=== PATIENT | female | born 1965 | race Caucasian/White ===

== ENCOUNTER 2021-04-18 02:53 | Inpatient (IN) ==
[2021-04-18] MEDS ORDERED: DEXTROSE 50%-WATER ABBOJECT ONE (03:09)
[2021-04-18] MEDS ORDERED: NARCAN IVP STA ×2 (03:12→03:42)
[2021-04-18 03:21] LABS: ABG O2 HGB 81.9 % (95-100); BEecf -10.3 (-2.0-3.0); HCO3 17.1 (21-28); MetHb 0.6 (0-1.5); TCO2 18.3 (19-24); sO2 76.3 % (94-98); tHb 12.1 g/dl (11.7-17.4)
[2021-04-18] MEDS ORDERED: NARCAN IVP ONE (03:23)
[2021-04-18 03:24] LABS: ABG PH 7.24 (7.35-7.45)
[2021-04-18] MEDS ORDERED: DUONEB NEB ONE (03:34)
[2021-04-18] MEDS ORDERED: DUONEB NEB STA (03:41)
[2021-04-18] MEDS ORDERED: SODIUM CHLORIDE 1,000 ML IV STA (03:41)
[2021-04-18] MEDS ORDERED: SOLU-MEDROL 125 MG IVP STA (03:43)
[2021-04-18 03:45] LABS: ABG O2 HGB 86.8 % (95-100); BEecf -9.7 (-2.0-3.0); COHb 4.6 (0.5-1.5); MetHb 0.4 (0-1.5); TCO2 19.4 (19-24); sO2 83.3 % (94-98); tHb 9.2 g/dl (11.7-17.4)
[2021-04-18 03:49] LABS: BORDETELLA PARAPERTUSSIS (PCR) NOT DETECTED (NOT DETECT); BORDETELLA PERTUSSIS (PCR) NOT DETECTED (NOT DETECT); CHLAMYDIA PNEUMONIAE (PCR) NOT DETECTED (NOT DETECT); CORONAVIRUS 229E (PCR) NOT DETECTED (NOT DETECT); CORONAVIRUS HKU1 (PCR) NOT DETECTED (NOT DETECT); CORONAVIRUS NL63 (PCR) NOT DETECTED (NOT DETECT); CORONAVIRUS OC43 (PCR) NOT DETECTED (NOT DETECT); HUMAN METAPNEUMOVIRUS (PCR) NOT DETECTED (NOT DETECT); HUMAN RHINOVIRUS/ENTEROV (PCR) NOT DETECTED (NOT DETECT); INFLUENZA B (PCR) NOT DETECTED (NOT DETECT); MYCOPLASMA PNEUMONIAE (PCR) NOT DETECTED (NOT DETECT); PARAINFLUENZA VIRUS 1 (PCR) NOT DETECTED (NOT DETECT); PARAINFLUENZA VIRUS 2 (PCR) NOT DETECTED (NOT DETECT); PARAINFLUENZA VIRUS 3 (PCR) NOT DETECTED (NOT DETECT); PARAINFLUENZA VIRUS 4 (PCR) NOT DETECTED (NOT DETECT); RESPIRATORY SYNCYTIAL V (PCR) NOT DETECTED (NOT DETECT); SARS_COV_2 (PCR) NOT DETECTED (NOT DETECT)
[2021-04-18 03:50] LABS: BASOPHILS % (AUTO) 0.3 % (0.0-3.0); EOSINOPHILS # (AUTO) 0.1 K/ul (0.0-0.7); EOSINOPHILS % (AUTO) 1.5 % (0.0-7.0); HEMATOCRIT 25.6 % (37.0-47.0); HEMOGLOBIN 8.3 g/dl (12.0-16.0); IMMATURE GRANULOCYTE # (AUTO) 0.1 (0.0-1.0); LYMPHOCYTES # (AUTO) 0.7 K/uL (0.60-3.4); LYMPHOCYTES % (AUTO) 7.9 (10.0-50.0); MEAN CORPUSCULAR HEMOGLOBIN 28.2 pg (27.0-31.0); MEAN CORPUSCULAR HGB CONC 32.4 (31.8-35.4); MEAN CORPUSCULAR VOLUME 87.1 fl (81.0-99.0); MONOCYTES # (AUTO) 0.3 K/uL (0.4-2.0); MONOCYTES % (AUTO) 2.9 (0-10); NEUTROPHILS # (AUTO) 7.6 K/ul (2.0-6.9); NEUTROPHILS % (AUTO) 86.4 % (42.2-75.2); PLATELET COUNT 153 10^3/uL (140-440); RDW COEFFICIENT OF VARIATION 15.5 % (11.6-14.8); RED BLOOD COUNT 2.94 10^6/ul (4.20-5.40); WHITE BLOOD COUNT 8.83 K/ul (4.6-10.2)
[2021-04-18 03:50] LABS: ABG PH 7.22 (7.35-7.45)
[2021-04-18 03:58] LABS: BILIRUBIN,URINE Negative (NEGATIVE); CLARITY,URINE Clear (CLEAR); COLOR,URINE Yellow (YELLOW); GLUCOSE, URINE (UA) Negative (NEGATIVE); KETONES,URINE Negative (NEGATIVE); LEUKOCYTE ESTERASE ,URINE Negative (NEGATIVE); NITRITE,URINE Negative (NEGATIVE); PROTEIN,URINE 3+ (NEGATIVE); URINE, BLOOD Trace-lysed (NEGATIVE); UROBILINOGEN,URINE 0.2 (0.2)
[2021-04-18 04:02] LABS: ALANINE AMINOTRANSFERASE 38.6 U/L (0-35); ALBUMIN 3.07 g/dL (3.5-5.0); ALKALINE PHOSPHATASE 228.4 U/L (38-126); AMYLASE 48.5 U/L (30-110); ASPARTATE AMINO TRANSFERASE 41.5 U/L (14-36); BILIRUBIN,TOTAL 0.26 mg/dL (0.2-1.3); BLOOD UREA NITROGEN 35.8 mg/dL (7-17); CALCIUM 8.17 mg/dL (8.4-10.2); CARBON DIOXIDE 16.5 mmol/L (22-30.0); CHLORIDE 117.7 mmol/L (98-107); CREATININE 2.45 mg/dL (0.60-1.30); GLUCOSE 124.4 mg/dL (74-106); POTASSIUM 4.76 mmol/L (3.5-5.1); SODIUM 140.6 mmol/L (134.5-145); TOTAL PROTEIN 5.94 g/dL (6.3-8.2)
[2021-04-18 04:03] LABS: MAGNESIUM 1.91 mg/dL (1.6-2.3)
[2021-04-18 04:04] LABS: LIPASE < 10.0 U/L (23-300)
[2021-04-18 04:07] LABS: AMPHETAMINE SCREEN,URINE NEGATIVE (NEGATIVE); BARBITURATE SCREEN,URINE NEGATIVE (NEGATIVE); BENZODIAZEPINES SCREEN,URINE NEGATIVE (NEGATIVE); CANNABINOID SCREEN,URINE NEGATIVE (NEGATIVE); COCAIN SCREEN,URINE NEGATIVE (NEGATIVE); METHADONE URINE SCREEN NEGATIVE (NEGATIVE); METHAMPHETAMINES SCREEN,URINE NEGATIVE (NEGATIVE); OPIATE SCREEN,URINE NEGATIVE (NEGATIVE); OXYCODONE URINE SCREEN NEGATIVE (NEGATIVE); PHENCYCLIDINE SCREEN,URINE NEGATIVE (NEGATIVE); PROPOXYPHENE URINE SCREEN NEGATIVE (NEGATIVE); TRICYCLIC ANTIDEPRESSANTS URIN NEGATIVE (NEGATIVE)
[2021-04-18 04:08] LABS: BACTERIA,URINE 1+ (NOT PRESENT); MUCUS,URINE 1+ (NOT PRESENT)
--- NOTE | 2021-04-18 04:12 | ED.PDOC ---
General ED Provider: Dr. ELIZABETH ROQUE Chief Complaint: Hypoglycemia Stated Complaint: Patient is a 55 year old female who was brought by EMS from semi truck at the stop while travelling Through town states she woke up with hypoglycemia Glucose 51 EMS gave her 1 amp of D50 With Blood glucose went up to 151. Patient was obtunded. Time Seen by Provider: 04/18/21 03:10 Mode of Arrival: Ambulance Information Source: Patient Nursing and Triage Documentation Reviewed and Agree: Yes Does patient meet sepsis criteria?: No System Inflammatory Response Syndrome: Acutely Altered Mental Status Sepsis Protocol: For patient's 13 years and over: Temp is 96.8 and below OR 101 and greater Pulse >90 BPM Resp >20/minute Acutely Altered Mental Status Are patient's symptoms suggestive of a new infection, such as: -Pneumonia -Skin, Soft Tissue -Endocarditis -UTI -Bone, Joint Infection -Implantable Device -Acute Abdominal Infection -Wound Infection -Meningitis -Blood Stream Catheter Infection -Unknown Endocrine Complaint Exam Diabetic Complication Complaint/Exam Onset/Duration: just prior to arrival Symptoms Are: Still present Timing: Constant Initial Severity: Severe Current Severity: Moderate Character: Alert Alleviating: Reports EMS treatment Associated Signs and Symptoms: Reports Decreased LOC Related History: Reports DM 1 and Insulin requiring Last Glucometer Readin Cardiac Risk Factors: Reports DM, Hypertension, Smoking and Elevated lipids CVA Risk Factors: Reports DM, Hypertension and Smoking Acetone on Breath: No Dry Mucous Membranes: No Kussmaul Respirations: No Glascow Coma Scale (see protocol): 12 Focal Weakness: None Nystagmus Present: No Gag Reflex Present: Yes Differential Diagnoses: Acute UT, CVA, Hypoglycemia, Seizure and Sepsis Quality Indicator For Non-Traumatic Chest Pain/Syncope: EKG Performed Review of Systems Review Of Systems Constitutional: Reports Malaise All Other Systems: Other (limited by mental status ) PFSH Female Reproductive History Menstrual Hx Hysterectomy: Yes Physical Exam Physical Exam Appearance: Reports Well-nourished Ill-appearing: Severe Pain Distress: None Eyes: Reports NAZIA, EOMI and Conjunctiva clear ENT: Reports Nose normal Neck: Not Examined Respiratory: Reports Airway patent, Rhonchi and Wheezes Cardiovascular: Reports RRR, Pulses normal, No rub and No murmur GI/: Reports Soft Musculoskeletal: Reports ROM intact and No edema Skin: Reports Warm and Dry Neurological: Reports Alert to pain Psychiatric: Reports Not Examined Interpretation Radiology Interpretation Radiology Interpretation By: Radiologist Radiology Results: No acute changes (No intracranial hemorrhage or evidence of large vessel infarct.) Exam Interpreted: CT Scan (head ) Radiology Interpretation By: Radiologist Radiology Results: Positive (Bilateral pneumonia as described.) Exam Interpreted: CT Scan Box Nailer Rate: Normal Rhythm: Sinus Ectopy: None EKG Interpretation Time of EKG #1: 03:20 Rate: Walter Rhythm: Sinus Ectopy: None [place]: NL ST Segment: Normal Interpretation: Left ventricular Hypertorphy with QRS widening and repolorization abnormali Critical Care Note Critical Care Note Total Critical Care Time (mins): 60 Comments: patient was placed on 100% oxygen then titrated to 4 liters after noted elevated PO2 then down to 2 liter. Family wanted her transferred to a hospital close to her by singing her out AMA but we advised that her saturations dropped to the low 80s off oxygen and that it would not be safe to do that now. They were agreeable to admission to the hospital until her oxygen levels improved. Course Course Hematology/Chemistry: 04/18/21 03:45 04/18/21 08:15 Orders, Labs, Meds: Lab Review 04/18/21 04/18/21 04/18/21 03:10 03:15 03:35 WBC RBC Hgb Hct MCV MCH MCHC RDW Coeff of Reji Plt Count Immature Gran % (Auto) Neut % (Auto) Lymph % (Auto) Gaston % (Auto) Eos % (Auto) Baso % (Auto) Neut # (Auto) Lymph # (Auto) Gaston # (Auto) Eos # (Auto) Baso # (Auto) Immature Gran # (Auto) Puncture Site Lb Base Excess -10.3 L O2 Saturation 76.3 L ABG pH 7.24 L* ABG pCO2 40.0 ABG pO2 49.0 L* ABG HCO3 17.1 L ABG Total CO2 18.3 L Maurice Test + Hemoglobin 0.6 Oxyhemoglobin 81.9 L Carboxyhemoglobin 5.0 H Total Hemoglobin 12.1 O2 Delivery Device Oxygen Liter Flow FiO2 % 21.0 Sodium Potassium Chloride Carbon Dioxide Anion Gap BUN Creatinine Estimated GFR (MDRD) BUN/Creatinine Ratio Glucose Lactic Acid Calcium Magnesium Total Bilirubin AST ALT Alkaline Phosphatase Troponin I NT-Pro-B Natriuret Pep Total Protein Albumin Globulin Albumin/Globulin Ratio Amylase Lipase Procalcitonin Urine Color Yellow Urine Clarity Clear Urine pH 5.0 Ur Specific Whately 1.025 Urine Protein 3+ H Urine Glucose (UA) Negative Urine Ketones Negative Urine Blood Trace-lysed Urine Nitrite Negative Urine Bilirubin Negative Urine Urobilinogen 0.2 Ur Leukocyte Esterase Negative Urine Microscopic RBC 5-10 Urine Microscopic WBC 2-5 Ur Squamous Epith Cells 2-5 Urine Bacteria 1+ Hyaline Casts 2-5 Urine Mucus 1+ Urine Opiates Screen Ur Oxycodone Screen Urine Methadone Screen Ur Propoxyphene Screen Ur Barbiturates Screen U Tricyclic Antidepress Ur Phencyclidine Scrn Ur Amphetamine Screen U Methamphetamines Scrn U Benzodiazepines Scrn Urine Cocaine Screen U Cannabinoids Screen Adenovirus (PCR) Not detected B. pertussis DNA (PCR) Not detected B.parapertussis DNA PCR Not detected C. pneumoniae DNA (PCR) Not detected Coronavirus OC43 (PCR) Not detected Coronavirus HKU1 (PCR) Not detected Coronavirus 229E (PCR) Not detected Coronavirus NL63 (PCR) Not detected Human Metapneumovir PCR Not detected Influenza Type A (PCR) Not detected Influenza B (RT-PCR) Not detected M. pneumoniae (PCR) Not detected Parainfluenza 1 (PCR) Not detected Parainfluenza 2 (PCR) Not detected Parainfluenza 3 (PCR) Not detected Parainfluenza 4 (PCR) Not detected RSV (PCR) Not detected Entero/Rhino (PCR) Not detected SARS-CoV-2 (PCR) Not detected 04/18/21 04/18/21 04/18/21 03:35 03:40 03:45 WBC 8.83 RBC 2.94 L Hgb 8.3 L Hct 25.6 L MCV 87.1 MCH 28.2 MCHC 32.4 RDW Coeff of Reji 15.5 H Plt Count 153 Immature Gran % (Auto) 1.0 Neut % (Auto) 86.4 H Lymph % (Auto) 7.9 L Gaston % (Auto) 2.9 Eos % (Auto) 1.5 Baso % (Auto) 0.3 Neut # (Auto) 7.6 H Lymph # (Auto) 0.7 Gaston # (Auto) 0.3 L Eos # (Auto) 0.1 Baso # (Auto) 0.0 Immature Gran # (Auto) 0.1 Puncture Site Lr Base Excess -9.7 L O2 Saturation 83.3 L ABG pH 7.22 L* ABG pCO2 44.0 ABG pO2 58.0 L* ABG HCO3 18.0 L ABG Total CO2 19.4 Maurice Test + Hemoglobin 0.4 Oxyhemoglobin 86.8 L Carboxyhemoglobin 4.6 H Total Hemoglobin 9.2 L O2 Delivery Device Non rebreather Oxygen Liter Flow 15.00 FiO2 % 100.0 Sodium Potassium Chloride Carbon Dioxide Anion Gap BUN Creatinine Estimated GFR (MDRD) BUN/Creatinine Ratio Glucose Lactic Acid Calcium Magnesium Total Bilirubin AST ALT Alkaline Phosphatase Troponin I NT-Pro-B Natriuret Pep Total Protein Albumin Globulin Albumin/Globulin Ratio Amylase Lipase Procalcitonin Urine Color Urine Clarity Urine pH Ur Specific Whately Urine Protein Urine Glucose (UA) Urine Ketones Urine Blood Urine Nitrite Urine Bilirubin Urine Urobilinogen Ur Leukocyte Esterase Urine Microscopic RBC Urine Microscopic WBC Ur Squamous Epith Cells Urine Bacteria Hyaline Casts Urine Mucus Urine Opiates Screen Negative Ur Oxycodone Screen Negative Urine Methadone Screen Negative Ur Propoxyphene Screen Negative Ur Barbiturates Screen Negative U Tricyclic Antidepress Negative Ur Phencyclidine Scrn Negative Ur Amphetamine Screen Negative U Methamphetamines Scrn Negative U Benzodiazepines Scrn Negative Urine Cocaine Screen Negative U Cannabinoids Screen Negative Adenovirus (PCR) B. pertussis DNA (PCR) B.parapertussis DNA PCR C. pneumoniae DNA (PCR) Coronavirus OC43 (PCR) Coronavirus HKU1 (PCR) Coronavirus 229E (PCR) Coronavirus NL63 (PCR) Human Metapneumovir PCR Influenza Type A (PCR) Influenza B (RT-PCR) M. pneumoniae (PCR) Parainfluenza 1 (PCR) Parainfluenza 2 (PCR) Parainfluenza 3 (PCR) Parainfluenza 4 (PCR) RSV (PCR) Entero/Rhino (PCR) SARS-CoV-2 (PCR) 04/18/21 04/18/21 04/18/21 03:45 03:45 03:45 WBC RBC Hgb Hct MCV MCH MCHC RDW Coeff of Reji Plt Count Immature Gran % (Auto) Neut % (Auto) Lymph % (Auto) Gaston % (Auto) Eos % (Auto) Baso % (Auto) Neut # (Auto) Lymph # (Auto) Gaston # (Auto) Eos # (Auto) Baso # (Auto) Immature Gran # (Auto) Puncture Site Base Excess O2 Saturation ABG pH ABG pCO2 ABG pO2 ABG HCO3 ABG Total CO2 Maurice Test Hemoglobin Oxyhemoglobin Carboxyhemoglobin Total Hemoglobin O2 Delivery Device Oxygen Liter Flow FiO2 % Sodium 140.6 Potassium 4.76 Chloride 117.7 H Carbon Dioxide 16.5 L Anion Gap 11.16 BUN 35.8 H Creatinine 2.45 H Estimated GFR (MDRD) 20.00 BUN/Creatinine Ratio 14.61 Glucose 124.4 H Lactic Acid < 0.50 L Calcium 8.17 L Magnesium 1.91 Total Bilirubin 0.26 AST 41.5 H ALT 38.6 H Alkaline Phosphatase 228.4 H Troponin I < 0.012 NT-Pro-B Natriuret Pep Total Protein 5.94 L Albumin 3.07 L Globulin 2.87 Albumin/Globulin Ratio 1.06 Amylase 48.5 Lipase < 10.0 L Procalcitonin Urine Color Urine Clarity Urine pH Ur Specific Whately Urine Protein Urine Glucose (UA) Urine Ketones Urine Blood Urine Nitrite Urine Bilirubin Urine Urobilinogen Ur Leukocyte Esterase Urine Microscopic RBC Urine Microscopic WBC Ur Squamous Epith Cells Urine Bacteria Hyaline Casts Urine Mucus Urine Opiates Screen Ur Oxycodone Screen Urine Methadone Screen Ur Propoxyphene Screen Ur Barbiturates Screen U Tricyclic Antidepress Ur Phencyclidine Scrn Ur Amphetamine Screen U Methamphetamines Scrn U Benzodiazepines Scrn Urine Cocaine Screen U Cannabinoids Screen Adenovirus (PCR) B. pertussis DNA (PCR) B.parapertussis DNA PCR C. pneumoniae DNA (PCR) Coronavirus OC43 (PCR) Coronavirus HKU1 (PCR) Coronavirus 229E (PCR) Coronavirus NL63 (PCR) Human Metapneumovir PCR Influenza Type A (PCR) Influenza B (RT-PCR) M. pneumoniae (PCR) Parainfluenza 1 (PCR) Parainfluenza 2 (PCR) Parainfluenza 3 (PCR) Parainfluenza 4 (PCR) RSV (PCR) Entero/Rhino (PCR) SARS-CoV-2 (PCR) 04/18/21 04/18/21 04/18/21 03:45 03:45 04:40 WBC RBC Hgb Hct MCV MCH MCHC RDW Coeff of Reji Plt Count Immature Gran % (Auto) Neut % (Auto) Lymph % (Auto) Gaston % (Auto) Eos % (Auto) Baso % (Auto) Neut # (Auto) Lymph # (Auto) Gaston # (Auto) Eos # (Auto) Baso # (Auto) Immature Gran # (Auto) Puncture Site Lb Base Excess -10.7 L O2 Saturation 99.7 H ABG pH 7.21 L* ABG pCO2 43.0 ABG pO2 238.0 H ABG HCO3 17.2 L ABG Total CO2 18.5 L Maurice Test + Hemoglobin 0.8 Oxyhemoglobin 94.6 L Carboxyhemoglobin 3.3 H Total Hemoglobin 9.2 L O2 Delivery Device Non rebreather Oxygen Liter Flow 15.00 FiO2 % 100.0 Sodium Potassium Chloride Carbon Dioxide Anion Gap BUN Creatinine Estimated GFR (MDRD) BUN/Creatinine Ratio Glucose Lactic Acid Calcium Magnesium Total Bilirubin AST ALT Alkaline Phosphatase Troponin I NT-Pro-B Natriuret Pep 4950.000 H Total Protein Albumin Globulin Albumin/Globulin Ratio Amylase Lipase Procalcitonin < 0.05 Urine Color Urine Clarity Urine pH Ur Specific Whately Urine Protein Urine Glucose (UA) Urine Ketones Urine Blood Urine Nitrite Urine Bilirubin Urine Urobilinogen Ur Leukocyte Esterase Urine Microscopic RBC Urine Microscopic WBC Ur Squamous Epith Cells Urine Bacteria Hyaline Casts Urine Mucus Urine Opiates Screen Ur Oxycodone Screen Urine Methadone Screen Ur Propoxyphene Screen Ur Barbiturates Screen U Tricyclic Antidepress Ur Phencyclidine Scrn Ur Amphetamine Screen U Methamphetamines Scrn U Benzodiazepines Scrn Urine Cocaine Screen U Cannabinoids Screen Adenovirus (PCR) B. pertussis DNA (PCR) B.parapertussis DNA PCR C. pneumoniae DNA (PCR) Coronavirus OC43 (PCR) Coronavirus HKU1 (PCR) Coronavirus 229E (PCR) Coronavirus NL63 (PCR) Human Metapneumovir PCR Influenza Type A (PCR) Influenza B (RT-PCR) M. pneumoniae (PCR) Parainfluenza 1 (PCR) Parainfluenza 2 (PCR) Parainfluenza 3 (PCR) Parainfluenza 4 (PCR) RSV (PCR) Entero/Rhino (PCR) SARS-CoV-2 (PCR) 04/18/21 04/18/21 07:03 08:15 WBC RBC Hgb Hct MCV MCH MCHC RDW Coeff of Reji Plt Count Immature Gran % (Auto) Neut % (Auto) Lymph % (Auto) Gaston % (Auto) Eos % (Auto) Baso % (Auto) Neut # (Auto) Lymph # (Auto) Gaston # (Auto) Eos # (Auto) Baso # (Auto) Immature Gran # (Auto) Puncture Site [place] Base Excess -11.8 L O2 Saturation 91.1 L ABG pH 7.19 L* ABG pCO2 43.0 ABG pO2 76.0 L ABG HCO3 16.4 L ABG Total CO2 17.7 L Maurice Test Pos Hemoglobin 1.4 Oxyhemoglobin 91.7 L Carboxyhemoglobin 2.5 H Total Hemoglobin 9.4 L O2 Delivery Device Cannula Oxygen Liter Flow 3.00 FiO2 % Sodium 141.2 Potassium 5.18 H Chloride 119.5 H Carbon Dioxide 15.9 L Anion Gap 10.98 BUN 35.6 H Creatinine 2.40 H Estimated GFR (MDRD) 21.00 BUN/Creatinine Ratio 14.83 Glucose 82.9 Lactic Acid Calcium 8.36 L Magnesium Total Bilirubin AST ALT Alkaline Phosphatase Troponin I NT-Pro-B Natriuret Pep Total Protein Albumin Globulin Albumin/Globulin Ratio Amylase Lipase Procalcitonin Urine Color Urine Clarity Urine pH Ur Specific Whately Urine Protein Urine Glucose (UA) Urine Ketones Urine Blood Urine Nitrite Urine Bilirubin Urine Urobilinogen Ur Leukocyte Esterase Urine Microscopic RBC Urine Microscopic WBC Ur Squamous Epith Cells Urine Bacteria Hyaline Casts Urine Mucus Urine Opiates Screen Ur Oxycodone Screen Urine Methadone Screen Ur Propoxyphene Screen Ur Barbiturates Screen U Tricyclic Antidepress Ur Phencyclidine Scrn Ur Amphetamine Screen U Methamphetamines Scrn U Benzodiazepines Scrn Urine Cocaine Screen U Cannabinoids Screen Adenovirus (PCR) B. pertussis DNA (PCR) B.parapertussis DNA PCR C. pneumoniae DNA (PCR) Coronavirus OC43 (PCR) Coronavirus HKU1 (PCR) Coronavirus 229E (PCR) Coronavirus NL63 (PCR) Human Metapneumovir PCR Influenza Type A (PCR) Influenza B (RT-PCR) M. pneumoniae (PCR) Parainfluenza 1 (PCR) Parainfluenza 2 (PCR) Parainfluenza 3 (PCR) Parainfluenza 4 (PCR) RSV (PCR) Entero/Rhino (PCR) SARS-CoV-2 (PCR) Orders Category Date Time Status ABG DRAW REQUEST Stat CARDIO 04/18/21 03:09 Completed ABG DRAW REQUEST Stat CARDIO 04/18/21 03:40 Completed ABG DRAW REQUEST Stat CARDIO 04/18/21 04:30 Completed EKG-(ED ONLY) Stat CARDIO 04/18/21 03:08 Completed NEBULIZER TREATMENT Stat CARDIO 04/18/21 03:41 Completed APPLY [ED APPLY O2] .ONCE EMERGENCY 04/18/21 03:14 Active Sales [ED CATHETER INSERTION AND CARE] .ONCE EMERGENCY 04/18/21 03:45 Active ABG COOX Stat LAB 04/18/21 03:15 Completed ABG COOX Stat LAB 04/18/21 03:40 Completed ABG COOX Stat LAB 04/18/21 04:40 Completed ABG COOX Stat LAB 04/18/21 07:03 Completed AMYLASE Stat LAB 04/18/21 03:45 Completed BMP [BASIC METABOLIC PANEL] Stat LAB 04/18/21 08:15 Completed BNP [NT-PROBNP] Stat LAB 04/18/21 03:45 Completed CBC W/ AUTO DIFF Stat LAB 04/18/21 03:45 Completed COMPREHENSIVE METABOLIC PANEL Stat LAB 04/18/21 03:45 Completed LACTIC ACID Stat LAB 04/18/21 03:45 Completed LIPASE Stat LAB 04/18/21 03:45 Completed MAGNESIUM Stat LAB 04/18/21 03:45 Completed PROCALCITONIN Stat LAB 04/18/21 03:45 Completed RESPIRATORY PANEL 2.1 (PCR) Stat LAB 04/18/21 03:10 Completed TROPONIN I Stat LAB 04/18/21 03:45 Completed URINALYSIS C & S IF INDICATED Stat LAB 04/18/21 03:35 Completed URINE CULTURE Stat LAB 04/18/21 03:35 Received URINE DRUG SCREEN (RAPID FOR ED) [DRUG SCREEN, URINE, LAB 04/18/21 03:35 Completed RAPID] Stat Azithromycin Inj [Zithromax] 500 mg MEDS 04/18/21 04:54 Discontinued 0.9 % Sodium Chloride [Sodium Chloride] 250 ml IV ONCE Ceftriaxone/D5w 1 gm Premix [Rocephin 1 gm/50 ml D5w] MEDS 04/18/21 04:18 Discontinued 1 gm in 50 ml IV ONCE Dextrose 50 % in Water [Dextrose 50%-Water Abboject] MEDS 04/18/21 03:09 Discontinued 50 ml .ROUTE .STK-MED ONE Ipratropium/Albuterol Neb [Duoneb] MEDS 04/18/21 03:34 Discontinued 3 ml NEB .STK-MED ONE Ipratropium/Albuterol Neb [Duoneb] MEDS 04/18/21 03:41 Discontinued 3 ml NEB ONCE STA Methylprednisolone Sod Succ/Pf [Solu-Medrol 125 mg] MEDS 04/18/21 03:43 Discontinued 125 mg IVP ONCE STA Naloxone HCl [Narcan] MEDS 04/18/21 03:23 Discontinued 2 mg IVP ONCE ONE Naloxone HCl [Narcan] MEDS 04/18/21 03:42 Discontinued 2 mg IVP ONCE STA Sodium Chloride 0.9% [Sodium Chloride] 1,000 ml MEDS 04/18/21 03:41 D iscontinued IV BOLUS CT CHEST W/O CONTRAST Stat RADS 04/18/21 03:[address] HEAD W/O CONTRAST Stat RADS 04/18/21 03:43 Completed Medications Discontinued Medications Generic Name Dose Route Start Last Admin Trade Name Freq PRN Reason Stop Dose Admin Albuterol/Ipratropium 3 ml 04/18/21 03:41 04/18/21 04:51 Ipratropium/Albuterol Vial.Neb NEB 04/18/21 03:42 Not Given ONCE STA Sodium Chloride 1,000 mls @ 1,000 mls/hr 04/18/21 03:41 04/18/21 03:46 Sodium Chloride IV 04/18/21 04:40 1,000 mls/hr BOLUS STA Administration CEFTRIAXONE/D5W 1 GM PREMIX 1 gm in 50 mls @ 75 mls/hr 04/18/21 04:18 03/24 11/10 04:24 Rocephin 1 Gm/50 Ml D5w IV 04/18/21 04:57 75 mls/hr ONCE STA Administration Azithromycin 500 mg/ Sodium 250 mls @ 125 mls/hr 04/18/21 04:54 04/18/21 05:02 Chloride IV 04/18/21 06:53 125 mls/hr ONCE ONE Administration Methylprednisolone Sodium Succinate 125 mg 04/18/21 03:43 04/18/21 03:49 Methylprednisolone Sod Succ/Pf 125 Mg/2 Ml Vial IVP 04/18/21 03:44 125 mg ONCE STA Administration Naloxone HCl 2 mg 04/18/21 03:23 04/18/21 03:26 Naloxone Hcl 2 Mg/2 Ml Disp.Syrin IVP 04/18/21 03:24 2 mg ONCE ONE Administration Naloxone HCl 2 mg 04/18/21 03:42 04/18/21 03:46 Naloxone Hcl 2 Mg/2 Ml Disp.Syrin IVP 04/18/21 03:43 2 mg ONCE STA Administration Vital Signs: Temp Pulse Resp BP Pulse Ox 04/18/21 02:54 96.3 F L 59 L 18 130/57 L 87 L Discharge Plan Discharge Patient Disposition: ADMITTED INPATIENT Discharge Problem: Bilateral pneumonia, Hypoglycemia, Chronic kidney failure ED Provider: ELIZABETH ROQUE Condition: Stable Physician Progress Note: []
[2021-04-18 04:14] LABS: TROPONIN I < 0.012 ng/ml (0.0000-0.120)
[2021-04-18] MEDS ORDERED: ROCEPHIN 1 GM/50 ML D5W 1 GM/50 ML BAG IV STA (04:18)
[2021-04-18 04:20] LABS: ADENOVIRUS (PCR) NOT DETECTED (NOT DETECT)
[2021-04-18 04:44] LABS: ABG O2 HGB 94.6 % (95-100); BEecf -10.7 (-2.0-3.0); COHb 3.3 (0.5-1.5); HCO3 17.2 (21-28); MetHb 0.8 (0-1.5); TCO2 18.5 (19-24); sO2 99.7 % (94-98); tHb 9.2 g/dl (11.7-17.4)
--- NOTE | 2021-04-18 04:45 | CT ---
EXAM: CT head without contrast. HISTORY: Altered level of consciousness. PROCEDURE: Contiguous axial CT images of the head without contrast with coronal and sagittal reforma ts. FINDINGS: There is diffuse cerebral atrophy. The ventricles and basal cisterns are normal in size an d configuration. No evidence of mass or midline shift. No intracranial hemorrhage or evidence of la rge vessel infarct. There are chronic small vessel ischemic changes in the white matter. 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 There is minimal mucosal thickening in the paranasal sin uses. The mastoid air cells are normal in appearance. Impression: No intracranial hemorrhage or evidence of large vessel infarct. Chronic small vessel ischemic changes. Diffuse cerebral atrophy. Paranasal sinusitis. All CT scans are performed using dose optimization techniques as appropriate to the performed exam an d include at least one of the following: Automated exposure control, adjustment of the mA and/or kV according t o size, and the use of iterative reconstruction technique.
[2021-04-18 04:47] LABS: ABG PH 7.21 (7.35-7.45)
--- NOTE | 2021-04-18 04:48 | CT ---
EXAM: CT chest without contrast. HISTORY: Hypoxia. PROCEDURE: Contiguous axial CT images of the chest without contrast with coronal and sagittal reform ats. FINDINGS: The heart is enlarged. The thoracic aorta is within normal limits in size. There are enla rged mediastinal lymph nodes measuring up to 1.2 cm in short axis. There are small layering bilatera l pleural effusions. There are bilateral infiltrates and consolidation, consistent with pneumonia. There is a fluid density cyst in the liver. There is a fluid density cyst in the mid body of the gibson creas measuring 3.9 x 4 cm. There are degenerative changes in the spine. There are multiple sternot peewee wires. Impression: Bilateral pneumonia as described. Small bilateral pleural effusions. Mediastinal lymphadenopathy as described. Recommend follow-up CT in 3 months to confirm stability. Cardiomegaly. 3.9 x 4 cm pancreatic cyst as described, recommend follow-up CT in 3 months to confirm stability. All CT scans are performed using dose optimization techniques as appropriate to the performed exam an d include at least one of the following: Automated exposure control, adjustment of the mA and/or kV according t o size, and the use of iterative reconstruction technique.
[2021-04-18] MEDS ORDERED: ZITHROMAX 500 MG in SODIUM CHLORIDE 250 ML IV ONE (04:54)
[2021-04-18 07:16] LABS: ABG O2 HGB 91.7 % (95-100); BEecf -11.8 (-2.0-3.0); COHb 2.5 (0.5-1.5); HCO3 16.4 (21-28); MetHb 1.4 (0-1.5); TCO2 17.7 (19-24); sO2 91.1 % (94-98); tHb 9.4 g/dl (11.7-17.4)
[2021-04-18 07:19] LABS: ABG PH 7.19 (7.35-7.45)
[2021-04-18 08:42] LABS: BLOOD UREA NITROGEN 35.6 mg/dL (7-17); CALCIUM 8.36 mg/dL (8.4-10.2); CARBON DIOXIDE 15.9 mmol/L (22-30.0); CHLORIDE 119.5 mmol/L (98-107); CREATININE 2.4 mg/dL (0.60-1.30); GLUCOSE 82.9 mg/dL (74-106); POTASSIUM 5.18 mmol/L (3.5-5.1); SODIUM 141.2 mmol/L (134.5-145)
[2021-04-18 11:04] VITALS: BMI 29.0
[2021-04-18] MEDS ORDERED: IMODIUM PO PRN (11:32)
[2021-04-18] MEDS ORDERED: PEPTO-BISMOL CHEW PO PRN (11:32)
[2021-04-18] MEDS ORDERED: INSU SUBCUT SCH (11:45)
[2021-04-18] MEDS ORDERED: INSULIN LISPRO 100 UNIT/ML SUBCUT SCH (11:45)
[2021-04-18] MEDS ORDERED: [UNRECOGNIZED DRUG - OTHER] SUBCUT SCH (11:45)
[2021-04-18] MEDS ORDERED: NON-FORMULARY MEDICATION (Aspirin 81 mg Tablet) PO SCH (11:45)
[2021-04-18] MEDS: NORVASC PO SCH (12:07)
[2021-04-18] MEDS: APRESOLINE PO SCH ×4 (12:07→21:53)
[2021-04-18] MEDS: SODIUM CHLORIDE 1,000 ML IV SCH ×2 (12:08→21:41)
[2021-04-18] MEDS: PLAVIX PO SCH (12:08)
[2021-04-18] MEDS: PROZAC PO SCH (12:08)
[2021-04-18] MEDS: ZETIA PO SCH (12:08)
[2021-04-18] MEDS: LOVENOX SUBCUT SCH (12:09)
[2021-04-18] MEDS: NEURONTIN PO SCH ×2 (15:51→21:53)
[2021-04-18] MEDS: COREG PO SCH (17:24)
[2021-04-18] MEDS: LANTUS SUBCUT SCH (21:54)
[2021-04-19 05:24] LABS: BASOPHILS % (AUTO) 0.1 % (0.0-3.0); HEMATOCRIT 27.6 % (37.0-47.0); HEMOGLOBIN 8.7 g/dl (12.0-16.0); IMMATURE GRANULOCYTE # (AUTO) 0.1 (0.0-1.0); IMMATURE GRANULOCYTE % (AUTO) 0.6 % (0.0-5.0); LYMPHOCYTES # (AUTO) 0.8 K/uL (0.60-3.4); LYMPHOCYTES % (AUTO) 8.1 (10.0-50.0); MEAN CORPUSCULAR HEMOGLOBIN 27.7 pg (27.0-31.0); MEAN CORPUSCULAR HGB CONC 31.5 (31.8-35.4); MEAN CORPUSCULAR VOLUME 87.9 fl (81.0-99.0); MONOCYTES # (AUTO) 0.5 K/uL (0.4-2.0); MONOCYTES % (AUTO) 5.6 (0-10); NEUTROPHILS # (AUTO) 8.2 K/ul (2.0-6.9); NEUTROPHILS % (AUTO) 85.6 % (42.2-75.2); PLATELET COUNT 154 10^3/uL (140-440); RDW COEFFICIENT OF VARIATION 15.7 % (11.6-14.8); RED BLOOD COUNT 3.14 10^6/ul (4.20-5.40); WHITE BLOOD COUNT 9.59 K/ul (4.6-10.2)
[2021-04-19 05:44] LABS: ALBUMIN 3.04 g/dL (3.5-5.0); ALKALINE PHOSPHATASE 210.7 U/L (38-126); ASPARTATE AMINO TRANSFERASE 23.7 U/L (14-36); BILIRUBIN,TOTAL 0.24 mg/dL (0.2-1.3); BLOOD UREA NITROGEN 38.8 mg/dL (7-17); CALCIUM 8.85 mg/dL (8.4-10.2); CARBON DIOXIDE 16.4 mmol/L (22-30.0); CHLORIDE 117.7 mmol/L (98-107); CREATININE 2.49 mg/dL (0.60-1.30); GLUCOSE 226.1 mg/dL (74-106); SODIUM 139.6 mmol/L (134.5-145); TOTAL PROTEIN 5.78 g/dL (6.3-8.2)
[2021-04-19 05:52] LABS: POTASSIUM 5.99 mmol/L (3.5-5.1)
[2021-04-19] MEDS: HUMULIN R SUBCUT PRN ×2 (06:09→12:23)
[2021-04-19 07:03] LABS: ABG O2 HGB 95.2 % (95-100); BEecf -11.5 (-2.0-3.0); COHb 1.1 (0.5-1.5); HCO3 15.9 (21-28); MetHb 0.6 (0-1.5); sO2 93.8 % (94-98); tHb 8.9 g/dl (11.7-17.4)
[2021-04-19 07:06] LABS: ABG PH 7.24 (7.35-7.45)
[2021-04-19] MEDS: SODIUM CHLORIDE 1,000 ML IV SCH ×2 (09:12→20:52)
[2021-04-19] MEDS: ASPIRIN EC PO SCH (09:13)
[2021-04-19] MEDS: ZITHROMAX 500 MG in SODIUM CHLORIDE 250 ML IV SCH (09:13)
[2021-04-19] MEDS: PROZAC PO SCH (09:13)
[2021-04-19] MEDS: COREG PO SCH ×2 (09:13→17:35)
[2021-04-19] MEDS: ZETIA PO SCH (09:13)
[2021-04-19] MEDS: PLAVIX PO SCH (09:14)
[2021-04-19] MEDS: APRESOLINE PO SCH ×4 (09:14→20:35)
[2021-04-19] MEDS: NORVASC PO SCH (09:14)
[2021-04-19] MEDS: NEURONTIN PO SCH ×3 (09:14→20:35)
[2021-04-19] MEDS: LANTUS SUBCUT SCH ×2 (09:14→20:36)
[2021-04-19] MEDS: LOVENOX SUBCUT SCH (09:15)
[2021-04-19] MEDS: ROCEPHIN 1 GM/50 ML D5W 1 GM/50 ML BAG IV SCH (11:26)
--- NOTE | 2021-04-19 16:45 | DI ---
EXAM: CHEST FRONTAL VIEW HISTORY: Pneumonia COMPARISON: None FINDINGS: Cardiomegaly and sternotomy wires are noted. Limited image quality secondary to body habi tus and portable technique. It would be difficult to exclude mild left base infiltrate/consolidation . Minimal central vascular congestion. Probable trace left pleural effusion. No pneumothorax. IMPRESSION: Limited image quality secondary to body habitus and portable technique. It would be dif ficult to exclude mild left base infiltrate/consolidation. Minimal central vascular congestion. Pro bable trace left pleural effusion. If symptoms persist, consider follow up with full inspiration, st anding two-view chest radiography using PA and lateral technique.
--- NOTE | 2021-04-19 20:08 | PCM.PROG ---
Date Seen by Provider: 04/19/21 Time Seen by Provider: 20:05 Subjective: Admits to breathing easier-no other complaints Objective: Vitals: T=98.5 F, P=59, R=16, VF=864/62, SPO2=98 HEENT: Clear Neck: Supple Lungs: CTA-Diminished BS\ CVS: HRRR Abdomen: Soft nontender Extremities: No Edema Neurological: Normal without focal deficit Skin: [] Lab/Tests/Diagnostic Imaging: See Chart (1) Bilateral pneumonia: Status: Acute Code(s): J18.9 - Pneumonia, unspecified organism SNOMED Code(s): 131435226 (2) Hypoglycemia: Status: Acute Code(s): E16.2 - Hypoglycemia, unspecified SNOMED Code(s): 840394289 (3) Chronic kidney failure: Status: Acute Code(s): N18.9 - Chronic kidney disease, unspecified SNOMED Code(s): 28429535 Plan: Continue present therapy Repeat Lab in am
[2021-04-20 05:08] LABS: BASOPHILS % (AUTO) 0.4 % (0.0-3.0); EOSINOPHILS # (AUTO) 0.1 K/ul (0.0-0.7); EOSINOPHILS % (AUTO) 0.9 % (0.0-7.0); HEMATOCRIT 26.5 % (37.0-47.0); HEMOGLOBIN 8.4 g/dl (12.0-16.0); IMMATURE GRANULOCYTE # (AUTO) 0.1 (0.0-1.0); IMMATURE GRANULOCYTE % (AUTO) 1.2 % (0.0-5.0); LYMPHOCYTES # (AUTO) 1.6 K/uL (0.60-3.4); LYMPHOCYTES % (AUTO) 17.3 (10.0-50.0); MEAN CORPUSCULAR HEMOGLOBIN 28.2 pg (27.0-31.0); MEAN CORPUSCULAR HGB CONC 31.7 (31.8-35.4); MEAN CORPUSCULAR VOLUME 88.9 fl (81.0-99.0); MONOCYTES # (AUTO) 0.5 K/uL (0.4-2.0); MONOCYTES % (AUTO) 5.3 (0-10); NEUTROPHILS % (AUTO) 74.9 % (42.2-75.2); PLATELET COUNT 142 10^3/uL (140-440); RDW COEFFICIENT OF VARIATION 15.9 % (11.6-14.8); RED BLOOD COUNT 2.98 10^6/ul (4.20-5.40)
[2021-04-20 05:20] LABS: ALANINE AMINOTRANSFERASE 31.7 U/L (0-35); ALBUMIN 2.91 g/dL (3.5-5.0); ALKALINE PHOSPHATASE 188.7 U/L (38-126); ASPARTATE AMINO TRANSFERASE 32.4 U/L (14-36); BILIRUBIN,TOTAL 0.16 mg/dL (0.2-1.3); BLOOD UREA NITROGEN 42.5 mg/dL (7-17); CALCIUM 7.98 mg/dL (8.4-10.2); CHLORIDE 121.9 mmol/L (98-107); CREATININE 2.51 mg/dL (0.60-1.30); GLUCOSE 83.5 mg/dL (74-106); POTASSIUM 5.14 mmol/L (3.5-5.1); SODIUM 140.8 mmol/L (134.5-145); TOTAL PROTEIN 5.62 g/dL (6.3-8.2)
[2021-04-20] MEDS: SODIUM CHLORIDE 1,000 ML IV SCH (07:47)
[2021-04-20] MEDS: PLAVIX PO SCH (08:29)
[2021-04-20] MEDS: NEURONTIN PO SCH ×3 (08:30→21:49)
[2021-04-20] MEDS: APRESOLINE PO SCH ×4 (08:30→21:50)
[2021-04-20] MEDS: ZETIA PO SCH (08:30)
[2021-04-20] MEDS: ASPIRIN EC PO SCH (08:30)
[2021-04-20] MEDS: NORVASC PO SCH (08:30)
[2021-04-20] MEDS: COREG PO SCH ×2 (08:30→16:32)
[2021-04-20] MEDS: ROCEPHIN 1 GM/50 ML D5W 1 GM/50 ML BAG IV SCH (08:31)
[2021-04-20] MEDS: PROZAC PO SCH (08:31)
[2021-04-20] MEDS ORDERED: HUMULIN R SUBCUT STA (09:10)
[2021-04-20] MEDS ORDERED: ALBUTEROL 0.083% NEB NEB PRN (09:11)
[2021-04-20] MEDS ORDERED: HUMULIN R SUBCUT PRN (09:15)
[2021-04-20] MEDS: LANTUS SUBCUT SCH ×2 (10:19→21:55)
[2021-04-20] MEDS: ZITHROMAX 500 MG in SODIUM CHLORIDE 250 ML IV SCH (10:21)
[2021-04-20] MEDS: SOLU-MEDROL 40 MG IVP SCH ×3 (10:21→21:49)
[2021-04-20] MEDS: DUONEB NEB SCH ×4 (10:37→21:30)
[2021-04-20] MEDS ORDERED: SODIUM CHLORIDE 1,000 ML IV SCH (11:56)
--- NOTE | 2021-04-20 16:10 | DI ---
EXAM: CHEST FRONTAL AND LATERAL VIEWS HISTORY: Shortness of breath COMPARISON: 04/14/2021 FINDINGS: Cardiomegaly, atherosclerotic disease and sternotomy wires are again noted. There is a sm all left pleural effusion similar to that previously seen. Adjacent left base density could represen t pneumonia or atelectasis. There is minimal central vascular congestion. No pneumothorax. IMPRESSION: 1. Stable findings since prior study. See above.
[2021-04-20] MEDS: HUMULIN R SUBCUT PRN ×2 (16:53→21:56)
--- NOTE | 2021-04-20 23:48 | PCM.PROG ---
Date Seen by Provider: 04/20/21 Time Seen by Provider: 09:00 Subjective: Admitted 04/18 with mild pneumonia, COPD exac, CKD exacerbation. See ETR for HPI and other info. She feels much better and is insistent on being discharged tomorrow. Her family wants to take her home to [facility]. Objective: Vitals: T=97.2 F, P=57, R=20, FX=613/74, SPO2=97 HEENT: [wnl] Neck: [wnl] Lungs: rhonchi, mild wheezing[] CVS: [rrr no m] Abdomen: [soft] Extremities: [intact] Neurological: [intact] Skin: []wnl Lab/Tests/Diagnostic Imaging: []see chart, she has diabetic nephropathy, so CKD (K runs somewhat high) and chronic anemia. CXR - mild pneumonia. (1) Bilateral pneumonia: Status: Acute Code(s): J18.9 - Pneumonia, unspecified organism SNOMED Code(s): 774058887 Assessment: On abx, neb tx prn, mild steroids, still on some oxygen per NC. Clinically improved. Has underlying COPD> (2) Diabetic nephropathy associated with type 2 diabetes mellitus: Status: Acute Code(s): E11.21 - Type 2 diabetes mellitus with diabetic nephropathy SNOMED Code(s): 579266625 Assessment: CKD and anemia likely at baseline, no records here, K runs a bit high, apparently chronic. BS controlled. Plan: 1. Pneumonia/COPD - continue abx, steroids, neb. Wean off O2, patient wants discharged tomorrow. 2. Diabetic nephropathy - likely at her baseline.
[2021-04-21] MEDS: DUONEB NEB SCH ×2 (01:07→04:15)
[2021-04-21 04:46] VITALS: BP 173/79; TEMP 98.1
[2021-04-21] MEDS: SOLU-MEDROL 40 MG IVP SCH (06:07)
[2021-04-21] MEDS: HUMULIN R SUBCUT PRN (06:07)
[2021-04-21 06:15] LABS: BASOPHILS % (AUTO) 0.2 % (0.0-3.0); HEMATOCRIT 27.4 % (37.0-47.0); HEMOGLOBIN 8.7 g/dl (12.0-16.0); IMMATURE GRANULOCYTE # (AUTO) 0.3 (0.0-1.0); IMMATURE GRANULOCYTE % (AUTO) 4.3 % (0.0-5.0); LYMPHOCYTES # (AUTO) 0.4 K/uL (0.60-3.4); LYMPHOCYTES % (AUTO) 7.3 (10.0-50.0); MEAN CORPUSCULAR HEMOGLOBIN 28.5 pg (27.0-31.0); MEAN CORPUSCULAR HGB CONC 31.8 (31.8-35.4); MEAN CORPUSCULAR VOLUME 89.8 fl (81.0-99.0); MONOCYTES # (AUTO) 0.1 K/uL (0.4-2.0); MONOCYTES % (AUTO) 0.8 (0-10); NEUTROPHILS # (AUTO) 5.2 K/ul (2.0-6.9); NEUTROPHILS % (AUTO) 87.4 % (42.2-75.2); PLATELET COUNT 120 10^3/uL (140-440); RDW COEFFICIENT OF VARIATION 15.5 % (11.6-14.8); RED BLOOD COUNT 3.05 10^6/ul (4.20-5.40); WHITE BLOOD COUNT 5.99 K/ul (4.6-10.2)
[2021-04-21 06:37] LABS: ALANINE AMINOTRANSFERASE 45.8 U/L (0-35); ALBUMIN 3.01 g/dL (3.5-5.0); ALKALINE PHOSPHATASE 215.1 U/L (38-126); ASPARTATE AMINO TRANSFERASE 36.6 U/L (14-36); BILIRUBIN,TOTAL 0.2 mg/dL (0.2-1.3); BLOOD UREA NITROGEN 48.1 mg/dL (7-17); CALCIUM 8.66 mg/dL (8.4-10.2); CARBON DIOXIDE 14.9 mmol/L (22-30.0); CHLORIDE 117.3 mmol/L (98-107); CREATININE 2.59 mg/dL (0.60-1.30); GLUCOSE 332.4 mg/dL (74-106); POTASSIUM 5.84 mmol/L (3.5-5.1); SODIUM 137.9 mmol/L (134.5-145); TOTAL PROTEIN 5.69 g/dL (6.3-8.2)
--- NOTE | 2021-04-21 07:14 | PCM.DC ---
Final Diagnosis: 1. Pneumonia. 2. Type 2 diabetes mellitus with diabetic nephropathy. Admit diagnosis 1. Pneumonia. 2. Type 2 diabetes with diabetic nephropathy. Date of admit: 04/18/21 Date of discharge: 04/21/21. (1) Bilateral pneumonia: Status: Acute Code(s): J18.9 - Pneumonia, unspecified organism SNOMED Code(s): 079137574 (2) Diabetic nephropathy associated with type 2 diabetes mellitus: Status: Acute Code(s): E11.21 - Type 2 diabetes mellitus with diabetic nephropathy SNOMED Code(s): 243913837 Reason for Hospitalization: Presented to ER with weakness, low blood sugar, cough. Traveling through the area, lives elsewhere. Here with family. Hx T2DM, COPD, HTN, diabetic nephropathy with CKD and anemia. Nicotine addiction. Prognosis/Condition at Discharge: Stable and improved at dicharge. Medications at Discharge: Ambulatory Orders Medication Instructions Recorded amlodipine 10 mg tablet 10 mg PO DAILY 04/18/21 aspirin 81 mg tablet 81 mg PO DAILY 04/18/21 bismuth subsalicylate 262 mg 2 tab PO Q30-60M PRN 04/18/21 chewable tablet (Pepto-Bismol To-Go) calcium carbonate 200 mg calcium 200 mg PO BID 04/18/21 (500 mg) chewable tablet (Tums) carvedilol 25 mg tablet 25 mg PO BID 04/18/21 clopidogrel 75 mg tablet (Plavix) 75 mg PO DAILY 04/18/21 ezetimibe 10 mg tablet 10 mg PO DAILY 04/18/21 fluoxetine 40 mg capsule 40 mg PO DAILY 04/18/21 gabapentin 100 mg capsule 200 mg PO TID 04/18/21 hydralazine 25 mg tablet 25 mg PO QID 04/18/21 insulin glargine 100 unit/mL (3 15 unit SUBCUT BID 04/18/21 mL) subcutaneous pen (Basaglar KwikPen U-100 Insulin) insulin lispro 100 unit/mL 1 sliding scale dose SUBCUT 04/18/21 subcutaneous pen (Admelog SoloStar DIRECTED U-100 Insulin lispro) loperamide 2 mg tablet 2 mg PO QID PRN 04/18/21 zolpidem 5 mg tablet (Ambien) 2.5 - 5 mg PO BEDTIME PRN 04/18/21 Lab/Diagnostics: Laboratory Tests 04/18/21 04/18/21 04/18/21 03:10 03:15 03:35 WBC RBC Hgb Hct MCV MCH MCHC RDW Coeff of Reji Plt Count Immature Gran % (Auto) Neut % (Auto) Lymph % (Auto) [place] % (Auto) Eos % (Auto) Baso % (Auto) Neut # (Auto) Lymph # (Auto) [place] # (Auto) Eos # (Auto) Baso # (Auto) Immature Gran # (Auto) Puncture Site Lb Base Excess -10.3 L O2 Saturation 76.3 L ABG pH 7.24 L* ABG pCO2 40.0 ABG pO2 49.0 L* ABG HCO3 17.1 L ABG Total CO2 18.3 L Maurice Test + Hemoglobin 0.6 Oxyhemoglobin 81.9 L Carboxyhemoglobin 5.0 H Total Hemoglobin 12.1 O2 Delivery Device Oxygen Liter Flow FiO2 % 21.0 Sodium Potassium Chloride Carbon Dioxide Anion Gap BUN Creatinine Estimated GFR (MDRD) BUN/Creatinine Ratio Glucose Lactic Acid Calcium Magnesium Total Bilirubin AST ALT Alkaline Phosphatase Troponin I NT-Pro-B Natriuret Pep Total Protein Albumin Globulin Albumin/Globulin Ratio Amylase Lipase Procalcitonin Urine Color Yellow Urine Clarity Clear Urine pH 5.0 Ur Specific [place] 1.025 Urine Protein 3+ H Urine Glucose (UA) Negative Urine Ketones Negative Urine Blood Trace-lysed Urine Nitrite Negative Urine Bilirubin Negative Urine Urobilinogen 0.2 Ur Leukocyte Esterase Negative Urine Microscopic RBC 5-10 Urine Microscopic WBC 2-5 Ur Squamous Epith Cells 2-5 Urine Bacteria 1+ Hyaline Casts 2-5 Urine Mucus 1+ Urine Opiates Screen Ur Oxycodone Screen Urine Methadone Screen Ur Propoxyphene Screen Ur Barbiturates Screen U Tricyclic Antidepress Ur Phencyclidine Scrn Ur Amphetamine Screen U Methamphetamines Scrn U Benzodiazepines Scrn Urine Cocaine Screen U Cannabinoids Screen Adenovirus (PCR) Not detected B. pertussis DNA (PCR) Not detected B.parapertussis DNA PCR Not detected C. pneumoniae DNA (PCR) Not detected Coronavirus OC43 (PCR) Not detected Coronavirus HKU1 (PCR) Not detected Coronavirus 229E (PCR) Not detected Coronavirus NL63 (PCR) Not detected Human Metapneumovir PCR Not detected Influenza Type A (PCR) Not detected Influenza B (RT-PCR) Not detected M. pneumoniae (PCR) Not detected Parainfluenza 1 (PCR) Not detected Parainfluenza 2 (PCR) Not detected Parainfluenza 3 (PCR) Not detected Parainfluenza 4 (PCR) Not detected RSV (PCR) Not detected Entero/Rhino (PCR) Not detected SARS-CoV-2 (PCR) Not detected 04/18/21 04/18/21 04/18/21 03:35 03:40 03:45 WBC 8.83 RBC 2.94 L Hgb 8.3 L Hct 25.6 L MCV 87.1 MCH 28.2 MCHC 32.4 RDW Coeff of Reji 15.5 H Plt Count 153 Immature Gran % (Auto) 1.0 Neut % (Auto) 86.4 H Lymph % (Auto) 7.9 L [place] % (Auto) 2.9 Eos % (Auto) 1.5 Baso % (Auto) 0.3 Neut # (Auto) 7.6 H Lymph # (Auto) 0.7 [place] # (Auto) 0.3 L Eos # (Auto) 0.1 Baso # (Auto) 0.0 Immature Gran # (Auto) 0.1 Puncture Site Lr Base Excess -9.7 L O2 Saturation 83.3 L ABG pH 7.22 L* ABG pCO2 44.0 ABG pO2 58.0 L* ABG HCO3 18.0 L ABG Total CO2 19.4 Maurice Test + Hemoglobin 0.4 Oxyhemoglobin 86.8 L Carboxyhemoglobin 4.6 H Total Hemoglobin 9.2 L O2 Delivery Device Non rebreather Oxygen Liter Flow 15.00 FiO2 % 100.0 Sodium Potassium Chloride Carbon Dioxide Anion Gap BUN Creatinine Estimated GFR (MDRD) BUN/Creatinine Ratio Glucose Lactic Acid Calcium Magnesium Total Bilirubin AST ALT Alkaline Phosphatase Troponin I NT-Pro-B Natriuret Pep Total Protein Albumin Globulin Albumin/Globulin Ratio Amylase Lipase Procalcitonin Urine Color Urine Clarity Urine pH Ur Specific [place] Urine Protein Urine Glucose (UA) Urine Ketones Urine Blood Urine Nitrite Urine Bilirubin Urine Urobilinogen Ur Leukocyte Esterase Urine Microscopic RBC Urine Microscopic WBC Ur Squamous Epith Cells Urine Bacteria Hyaline Casts Urine Mucus Urine Opiates Screen Negative Ur Oxycodone Screen Negative Urine Methadone Screen Negative Ur Propoxyphene Screen Negative Ur Barbiturates Screen Negative U Tricyclic Antidepress Negative Ur Phencyclidine Scrn Negative Ur Amphetamine Screen Negative U Methamphetamines Scrn Negative U Benzodiazepines Scrn Negative Urine Cocaine Screen Negative U Cannabinoids Screen Negative Adenovirus (PCR) B. pertussis DNA (PCR) B.parapertussis DNA PCR C. pneumoniae DNA (PCR) Coronavirus OC43 (PCR) Coronavirus HKU1 (PCR) Coronavirus 229E (PCR) Coronavirus NL63 (PCR) Human Metapneumovir PCR Influenza Type A (PCR) Influenza B (RT-PCR) M. pneumoniae (PCR) Parainfluenza 1 (PCR) Parainfluenza 2 (PCR) Parainfluenza 3 (PCR) Parainfluenza 4 (PCR) RSV (PCR) Entero/Rhino (PCR) SARS-CoV-2 (PCR) 04/18/21 04/18/21 04/18/21 03:45 03:45 03:45 WBC RBC Hgb Hct MCV MCH MCHC RDW Coeff of Reji Plt Count Immature Gran % (Auto) Neut % (Auto) Lymph % (Auto) [place] % (Auto) Eos % (Auto) Baso % (Auto) Neut # (Auto) Lymph # (Auto) [place] # (Auto) Eos # (Auto) Baso # (Auto) Immature Gran # (Auto) Puncture Site Base Excess O2 Saturation ABG pH ABG pCO2 ABG pO2 ABG HCO3 ABG Total CO2 Maurice Test Hemoglobin Oxyhemoglobin Carboxyhemoglobin Total Hemoglobin O2 Delivery Device Oxygen Liter Flow FiO2 % Sodium 140.6 Potassium 4.76 Chloride 117.7 H Carbon Dioxide 16.5 L Anion Gap 11.16 BUN 35.8 H Creatinine 2.45 H Estimated GFR (MDRD) 20.00 BUN/Creatinine Ratio 14.61 Glucose 124.4 H Lactic Acid < 0.50 L Calcium 8.17 L Magnesium 1.91 Total Bilirubin 0.26 AST 41.5 H ALT 38.6 H Alkaline Phosphatase 228.4 H Troponin I < 0.012 NT-Pro-B Natriuret Pep Total Protein 5.94 L Albumin 3.07 L Globulin 2.87 Albumin/Globulin Ratio 1.06 Amylase 48.5 Lipase < 10.0 L Procalcitonin Urine Color Urine Clarity Urine pH Ur Specific [place] Urine Protein Urine Glucose (UA) Urine Ketones Urine Blood Urine Nitrite Urine Bilirubin Urine Urobilinogen Ur Leukocyte Esterase Urine Microscopic RBC Urine Microscopic WBC Ur Squamous Epith Cells Urine Bacteria Hyaline Casts Urine Mucus Urine Opiates Screen Ur Oxycodone Screen Urine Methadone Screen Ur Propoxyphene Screen Ur Barbiturates Screen U Tricyclic Antidepress Ur Phencyclidine Scrn Ur Amphetamine Screen U Methamphetamines Scrn U Benzodiazepines Scrn Urine Cocaine Screen U Cannabinoids Screen Adenovirus (PCR) B. pertussis DNA (PCR) B.parapertussis DNA PCR C. pneumoniae DNA (PCR) Coronavirus OC43 (PCR) Coronavirus HKU1 (PCR) Coronavirus 229E (PCR) Coronavirus NL63 (PCR) Human Metapneumovir PCR Influenza Type A (PCR) Influenza B (RT-PCR) M. pneumoniae (PCR) Parainfluenza 1 (PCR) Parainfluenza 2 (PCR) Parainfluenza 3 (PCR) Parainfluenza 4 (PCR) RSV (PCR) Entero/Rhino (PCR) SARS-CoV-2 (PCR) 04/18/21 04/18/21 04/18/21 03:45 03:45 04:40 WBC RBC Hgb Hct MCV MCH MCHC RDW Coeff of Reji Plt Count Immature Gran % (Auto) Neut % (Auto) Lymph % (Auto) [place] % (Auto) Eos % (Auto) Baso % (Auto) Neut # (Auto) Lymph # (Auto) [place] # (Auto) Eos # (Auto) Baso # (Auto) Immature Gran # (Auto) Puncture Site Lb Base Excess -10.7 L O2 Saturation 99.7 H ABG pH 7.21 L* ABG pCO2 43.0 ABG pO2 238.0 H ABG HCO3 17.2 L ABG Total CO2 18.5 L Maurice Test + Hemoglobin 0.8 Oxyhemoglobin 94.6 L Carboxyhemoglobin 3.3 H Total Hemoglobin 9.2 L O2 Delivery Device Non rebreather Oxygen Liter Flow 15.00 FiO2 % 100.0 Sodium Potassium Chloride Carbon Dioxide Anion Gap BUN Creatinine Estimated GFR (MDRD) BUN/Creatinine Ratio Glucose Lactic Acid Calcium Magnesium Total Bilirubin AST ALT Alkaline Phosphatase Troponin I NT-Pro-B Natriuret Pep 4950.000 H Total Protein Albumin Globulin Albumin/Globulin Ratio Amylase Lipase Procalcitonin < 0.05 Urine Color Urine Clarity Urine pH Ur Specific [place] Urine Protein Urine Glucose (UA) Urine Ketones Urine Blood Urine Nitrite Urine Bilirubin Urine Urobilinogen Ur Leukocyte Esterase Urine Microscopic RBC Urine Microscopic WBC Ur Squamous Epith Cells Urine Bacteria Hyaline Casts Urine Mucus Urine Opiates Screen Ur Oxycodone Screen Urine Methadone Screen Ur Propoxyphene Screen Ur Barbiturates Screen U Tricyclic Antidepress Ur Phencyclidine Scrn Ur Amphetamine Screen U Methamphetamines Scrn U Benzodiazepines Scrn Urine Cocaine Screen U Cannabinoids Screen Adenovirus (PCR) B. pertussis DNA (PCR) B.parapertussis DNA PCR C. pneumoniae DNA (PCR) Coronavirus OC43 (PCR) Coronavirus HKU1 (PCR) Coronavirus 229E (PCR) Coronavirus NL63 (PCR) Human Metapneumovir PCR Influenza Type A (PCR) Influenza B (RT-PCR) M. pneumoniae (PCR) Parainfluenza 1 (PCR) Parainfluenza 2 (PCR) Parainfluenza 3 (PCR) Parainfluenza 4 (PCR) RSV (PCR) Entero/Rhino (PCR) SARS-CoV-2 (PCR) 04/18/21 04/18/21 04/19/21 07:03 08:15 04:10 WBC 9.59 RBC 3.14 L Hgb 8.7 L Hct 27.6 L MCV 87.9 MCH 27.7 MCHC 31.5 L RDW Coeff of Reji 15.7 H Plt Count 154 Immature Gran % (Auto) 0.6 Neut % (Auto) 85.6 H Lymph % (Auto) 8.1 L [place] % (Auto) 5.6 Eos % (Auto) 0.0 Baso % (Auto) 0.1 Neut # (Auto) 8.2 H Lymph # (Auto) 0.8 [place] # (Auto) 0.5 Eos # (Auto) 0.0 Baso # (Auto) 0.0 Immature Gran # (Auto) 0.1 Puncture Site [place] Base Excess -11.8 L O2 Saturation 91.1 L ABG pH 7.19 L* ABG pCO2 43.0 ABG pO2 76.0 L ABG HCO3 16.4 L ABG Total CO2 17.7 L Maurice Test Pos Hemoglobin 1.4 Oxyhemoglobin 91.7 L Carboxyhemoglobin 2.5 H Total Hemoglobin 9.4 L O2 Delivery Device Cannula Oxygen Liter Flow 3.00 FiO2 % Sodium 141.2 Potassium 5.18 H Chloride 119.5 H Carbon Dioxide 15.9 L Anion Gap 10.98 BUN 35.6 H Creatinine 2.40 H Estimated GFR (MDRD) 21.00 BUN/Creatinine Ratio 14.83 Glucose 82.9 Lactic Acid Calcium 8.36 L Magnesium Total Bilirubin AST ALT Alkaline Phosphatase Troponin I NT-Pro-B Natriuret Pep Total Protein Albumin Globulin Albumin/Globulin Ratio Amylase Lipase Procalcitonin Urine Color Urine Clarity Urine pH Ur Specific [place] Urine Protein Urine Glucose (UA) Urine Ketones Urine Blood Urine Nitrite Urine Bilirubin Urine Urobilinogen Ur Leukocyte Esterase Urine Microscopic RBC Urine Microscopic WBC Ur Squamous Epith Cells Urine Bacteria Hyaline Casts Urine Mucus Urine Opiates Screen Ur Oxycodone Screen Urine Methadone Screen Ur Propoxyphene Screen Ur Barbiturates Screen U Tricyclic Antidepress Ur Phencyclidine Scrn Ur Amphetamine Screen U Methamphetamines Scrn U Benzodiazepines Scrn Urine Cocaine Screen U Cannabinoids Screen Adenovirus (PCR) B. pertussis DNA (PCR) B.parapertussis DNA PCR C. pneumoniae DNA (PCR) Coronavirus OC43 (PCR) Coronavirus HKU1 (PCR) Coronavirus 229E (PCR) Coronavirus NL63 (PCR) Human Metapneumovir PCR Influenza Type A (PCR) Influenza B (RT-PCR) M. pneumoniae (PCR) Parainfluenza 1 (PCR) Parainfluenza 2 (PCR) Parainfluenza 3 (PCR) Parainfluenza 4 (PCR) RSV (PCR) Entero/Rhino (PCR) SARS-CoV-2 (PCR) 04/19/21 04/19/21 04/20/21 04:10 06:50 04:25 WBC 9.30 RBC 2.98 L Hgb 8.4 L Hct 26.5 L MCV 88.9 MCH 28.2 MCHC 31.7 L RDW Coeff of Reji 15.9 H Plt Count 142 Immature Gran % (Auto) 1.2 Neut % (Auto) 74.9 Lymph % (Auto) 17.3 [place] % (Auto) 5.3 Eos % (Auto) 0.9 Baso % (Auto) 0.4 Neut # (Auto) 7.0 H Lymph # (Auto) 1.6 [place] # (Auto) 0.5 Eos # (Auto) 0.1 Baso # (Auto) 0.0 Immature Gran # (Auto) 0.1 Puncture Site R brach Base Excess -11.5 L O2 Saturation 93.8 L ABG pH 7.24 L* ABG pCO2 37.0 ABG pO2 82.0 L ABG HCO3 15.9 L ABG Total CO2 17.0 L Maurice Test Y Hemoglobin 0.6 Oxyhemoglobin 95.2 Carboxyhemoglobin 1.1 Total Hemoglobin 8.9 L O2 Delivery Device Cannula Oxygen Liter Flow 3.00 FiO2 % Sodium 139.6 Potassium 5.99 H Chloride 117.7 H Carbon Dioxide 16.4 L Anion Gap 11.49 BUN 38.8 H Creatinine 2.49 H Estimated GFR (MDRD) 20.00 BUN/Creatinine Ratio 15.58 Glucose 226.1 H D Lactic Acid Calcium 8.85 Magnesium Total Bilirubin 0.24 AST 23.7 ALT 29.0 Alkaline Phosphatase 210.7 H Troponin I NT-Pro-B Natriuret Pep Total Protein 5.78 L Albumin 3.04 L Globulin 2.74 Albumin/Globulin Ratio 1.10 Amylase Lipase Procalcitonin Urine Color Urine Clarity Urine pH Ur Specific [place] Urine Protein Urine Glucose (UA) Urine Ketones Urine Blood Urine Nitrite Urine Bilirubin Urine Urobilinogen Ur Leukocyte Esterase Urine Microscopic RBC Urine Microscopic WBC Ur Squamous Epith Cells Urine Bacteria Hyaline Casts Urine Mucus Urine Opiates Screen Ur Oxycodone Screen Urine Methadone Screen Ur Propoxyphene Screen Ur Barbiturates Screen U Tricyclic Antidepress Ur Phencyclidine Scrn Ur Amphetamine Screen U Methamphetamines Scrn U Benzodiazepines Scrn Urine Cocaine Screen U Cannabinoids Screen Adenovirus (PCR) B. pertussis DNA (PCR) B.parapertussis DNA PCR C. pneumoniae DNA (PCR) Coronavirus OC43 (PCR) Coronavirus HKU1 (PCR) Coronavirus 229E (PCR) Coronavirus NL63 (PCR) Human Metapneumovir PCR Influenza Type A (PCR) Influenza B (RT-PCR) M. pneumoniae (PCR) Parainfluenza 1 (PCR) Parainfluenza 2 (PCR) Parainfluenza 3 (PCR) Parainfluenza 4 (PCR) RSV (PCR) Entero/Rhino (PCR) SARS-CoV-2 (PCR) 04/20/21 04/20/21 04/21/21 04:25 04:25 05:50 WBC 5.99 RBC 3.05 L Hgb 8.7 L Hct 27.4 L MCV 89.8 MCH 28.5 MCHC 31.8 RDW Coeff of Reji 15.5 H Plt Count 120 L Immature Gran % (Auto) 4.3 Neut % (Auto) 87.4 H Lymph % (Auto) 7.3 L [place] % (Auto) 0.8 Eos % (Auto) 0.0 Baso % (Auto) 0.2 Neut # (Auto) 5.2 Lymph # (Auto) 0.4 L [place] # (Auto) 0.1 L Eos # (Auto) 0.0 Baso # (Auto) 0.0 Immature Gran # (Auto) 0.3 Puncture Site Base Excess O2 Saturation ABG pH ABG pCO2 ABG pO2 ABG HCO3 ABG Total CO2 Maurice Test Hemoglobin Oxyhemoglobin Carboxyhemoglobin Total Hemoglobin O2 Delivery Device Oxygen Liter Flow FiO2 % Sodium 140.8 Potassium 5.14 H Chloride 121.9 H Carbon Dioxide 15.0 L Anion Gap 9.04 BUN 42.5 H Creatinine 2.51 H Estimated GFR (MDRD) 20.00 BUN/Creatinine Ratio 16.93 Glucose 83.5 Lactic Acid Calcium 7.98 L Magnesium Total Bilirubin 0.16 L AST 32.4 ALT 31.7 Alkaline Phosphatase 188.7 H Troponin I NT-Pro-B Natriuret Pep 5780.000 H Total Protein 5.62 L Albumin 2.91 L Globulin 2.71 Albumin/Globulin Ratio 1.07 Amylase Lipase Procalcitonin Urine Color Urine Clarity Urine pH Ur Specific [place] Urine Protein Urine Glucose (UA) Urine Ketones Urine Blood Urine Nitrite Urine Bilirubin Urine Urobilinogen Ur Leukocyte Esterase Urine Microscopic RBC Urine Microscopic WBC Ur Squamous Epith Cells Urine Bacteria Hyaline Casts Urine Mucus Urine Opiates Screen Ur Oxycodone Screen Urine Methadone Screen Ur Propoxyphene Screen Ur Barbiturates Screen U Tricyclic Antidepress Ur Phencyclidine Scrn Ur Amphetamine Screen U Methamphetamines Scrn U Benzodiazepines Scrn Urine Cocaine Screen U Cannabinoids Screen Adenovirus (PCR) B. pertussis DNA (PCR) B.parapertussis DNA PCR C. pneumoniae DNA (PCR) Coronavirus OC43 (PCR) Coronavirus HKU1 (PCR) Coronavirus 229E (PCR) Coronavirus NL63 (PCR) Human Metapneumovir PCR Influenza Type A (PCR) Influenza B (RT-PCR) M. pneumoniae (PCR) Parainfluenza 1 (PCR) Parainfluenza 2 (PCR) Parainfluenza 3 (PCR) Parainfluenza 4 (PCR) RSV (PCR) Entero/Rhino (PCR) SARS-CoV-2 (PCR) 04/21/21 04/21/21 05:50 05:50 WBC RBC Hgb Hct MCV MCH MCHC RDW Coeff of Reji Plt Count Immature Gran % (Auto) Neut % (Auto) Lymph % (Auto) [place] % (Auto) Eos % (Auto) Baso % (Auto) Neut # (Auto) Lymph # (Auto) [place] # (Auto) Eos # (Auto) Baso # (Auto) Immature Gran # (Auto) Puncture Site Base Excess O2 Saturation ABG pH ABG pCO2 ABG pO2 ABG HCO3 ABG Total CO2 Maurice Test Hemoglobin Oxyhemoglobin Carboxyhemoglobin Total Hemoglobin O2 Delivery Device Oxygen Liter Flow FiO2 % Sodium 137.9 Potassium 5.84 H Chloride 117.3 H Carbon Dioxide 14.9 L Anion Gap 11.54 BUN 48.1 H Creatinine 2.59 H Estimated GFR (MDRD) 19.00 BUN/Creatinine Ratio 18.57 Glucose 332.4 H Lactic Acid Calcium 8.66 Magnesium Total Bilirubin 0.20 AST 36.6 H ALT 45.8 H Alkaline Phosphatase 215.1 H D Troponin I NT-Pro-B Natriuret Pep 7710.000 H Total Protein 5.69 L Albumin 3.01 L Globulin 2.68 Albumin/Globulin Ratio 1.12 Amylase Lipase Procalcitonin Urine Color Urine Clarity Urine pH Ur Specific [place] Urine Protein Urine Glucose (UA) Urine Ketones Urine Blood Urine Nitrite Urine Bilirubin Urine Urobilinogen Ur Leukocyte Esterase Urine Microscopic RBC Urine Microscopic WBC Ur Squamous Epith Cells Urine Bacteria Hyaline Casts Urine Mucus Urine Opiates Screen Ur Oxycodone Screen Urine Methadone Screen Ur Propoxyphene Screen Ur Barbiturates Screen U Tricyclic Antidepress Ur Phencyclidine Scrn Ur Amphetamine Screen U Methamphetamines Scrn U Benzodiazepines Scrn Urine Cocaine Screen U Cannabinoids Screen Adenovirus (PCR) B. pertussis DNA (PCR) B.parapertussis DNA PCR C. pneumoniae DNA (PCR) Coronavirus OC43 (PCR) Coronavirus HKU1 (PCR) Coronavirus 229E (PCR) Coronavirus NL63 (PCR) Human Metapneumovir PCR Influenza Type A (PCR) Influenza B (RT-PCR) M. pneumoniae (PCR) Parainfluenza 1 (PCR) Parainfluenza 2 (PCR) Parainfluenza 3 (PCR) Parainfluenza 4 (PCR) RSV (PCR) Entero/Rhino (PCR) SARS-CoV-2 (PCR) CXR: HISTORY: Pneumonia COMPARISON: None FINDINGS: Cardiomegaly and sternotomy wires are noted. Limited image quality secondary to body habitus and portable technique. It would be difficult to exclude mild left base infiltrate/consolidation. Minimal central vascular congestion. Probable trace left pleural effusion. No pneumothorax. IMPRESSION: Limited image quality secondary to body habitus and portable technique. It would be difficult to exclude mild left base infiltrate/consolidation. Minimal central vascular congestion. Probable trace left pleural effusion. If symptoms persist, consider follow up with full inspiration, standing two-view chest radiography using PA and lateral technique. Head CT: FINDINGS: There is diffuse cerebral atrophy. The ventricles and basal cisterns are normal in size and configuration. No evidence of mass or midline shift. No intracranial hemorrhage or evidence of large vessel infarct. There are chronic small vessel ischemic changes in the white matter. 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 There is minimal mucosal thickening in the paranasal sinuses. The mastoid air cells are normal in appearance. Impression: No intracranial hemorrhage or evidence of large vessel infarct. Chronic small vessel ischemic changes. Diffuse cerebral atrophy. Paranasal sinusitis. Education Provided to Patient and Family: Pneumonia. CKD. COPD. Nicotine addiction. Follow-ups: PCP when return home. Discharge Disposition: Home Hospital Course: Admitted with hypoglycemia - resolved. Pneumonia, COVID and flu negative. COPD exacerbation. Treated with antibiotics, neb tx, steroids. Improved steadily. Discharge on RA with O2 sat 94%. Chronic problems from diabetic nephropathy, CKD and anemia. Stable and improved. Encouraged to stop smoking. Exam: Alert and oriented. VSS, afeb. RA sat 94%. HEENT - WNL. Neck supple. Heart RRR, no m. Lungs rhonchi, no wheeze. Abd - soft, no pain. Ext - intact. Neuro intact. Skin wnl. Plan: D/C on ceftin 500 mg bid for 10 days. She has albuterol MDI and all her home med. Stop smoking. See PCP.
== END 2021-04-21 07:50 | disposition home or self-care (01) | DRG 194 ==
LOC: ED 02:53 → MEDSURG A 09:35
PROVIDERS: ADMIT Internal Medicine Geriatric Medicine; ATTEND Emergency Medicine
DX: E16.2 Hypoglycemia, unspecified; E10.9 Type 1 diabetes mellitus without complications; F17.200 Nicotine dependence, unspecified, uncomplicated; I50.1 Left ventricular failure, unspecified; R41.82 Altered mental status, unspecified; N18.9 Chronic kidney disease, unspecified; Z20.822 Contact with and (suspected) exposure to COVID-19; J18.9 Pneumonia, unspecified organism; I51.7 Cardiomegaly; Z79.4 Long term (current) use of insulin; R53.81 Other malaise